=== PATIENT | female | born 1960 | race Caucasian/White ===

== ENCOUNTER 2023-11-26 11:59 | Emergency (ER) | payer BC, SELFPAY ==
[2023-11-26 12:08] VITALS: BP 195/104
[2023-11-26 13:25] VITALS: BP 188/90
--- NOTE | 2023-11-26 15:30 | ED.GENMED ---
History of Present Illness
General
Chief Complaint: Allergic Reaction
Source: patient
Time Seen by Provider: 11/26/23 13:00
History of Present Illness
History of Present Illness:
63yoF with a history of hypertension and hyperlipidemia presenting for evaluation of a rash. She initially started with a rash about 5 days ago. The rash is red, itchy, and migrating. She had some lower lip swelling 2 days ago so went to urgent
care. She was prescribed prednisone taper. She is currently on day 3 of 40mg of prednisone. Her lip swelling has resolved but she continues to have a rash and itching. Rash is located on her arms, legs, and trunk. She takes Claritin daily and has
been taking Benadryl without relief of her itching. She states that the inside of her ears and her throat also feel itchy. She is unsure what is causing her rash. She denies any new exposures. No exposure to similar rash. No recent illnesses.
Past History
Past History
ED Past Medical History: HTN, Hypercholesterolemia and Other (Low back pain)
ED Past Surgical History: Appendectomy and Orthopedic
Social History
Tobacco: Non-smoker
Personal:
Phy Exam
General Physical Exam
General Presentation: well appearing and no apparent distress
General age: appears stated age
General Skin: warm and dry
General Habitus: normal
General Mental: alert
General Hydration: appears well hydrated
ENT Exam
ENT Exam: pharynx normal
Additional ENT: No oropharyngeal swelling. Normal phonation.
Cardiovascular Exam
Cardiovascular Exam: regular rate/rhythm and no murmur
Pulmonary Exam
Pulmonary Exam: lungs clear, no respiratory distress, no crackles, no stridor and no wheezing
Skin Exam
Skin Exam: normal color, warm/dry, redness and other (Scattered raised urticaria in arms and trunk. Blanchable. )
Course
Vital Signs
Initial and Last Documented VS:
Initial Vital Signs
Temp Pulse Resp BP Pulse Ox
98.7 F 65 18 195/104 100
11/26/23 12:08 11/26/23 12:08 11/26/23 12:08 11/26/23 12:08 11/26/23 12:08
Last Documented Vital Signs
Temp Pulse Resp BP Pulse Ox
98.7 F 61 16 188/90 99
11/26/23 12:08 11/26/23 13:25 11/26/23 13:25 11/26/23 13:25 11/26/23 13:25
MDM/Problems Addressed
Differential Diagnosis Includes:
63yoF here with a rash that began last week. Currently on prednisone but rash/itching persists. No new exposures. She c/o throat itching. No oropharyngeal swelling on exam and airway is patent. Oxygen saturation 100% on room air. Urticarial rash
present on exam. Differential diagnosis includes but is not limited to: allergic reaction, hives, no evidence of infection
Will continue prednisone as previously prescribed by urgent care. Script provided for Atarax PRN for itching. Advised f/u with PCP if symptoms persist and ED return precautions discussed. Patient discharged in stable condition.
*Critical Care Note
Total Time (30-74mins, 75-104mins- exclusive of procedures): Not Applicable
ED Attending Note
-
Portions of this chart may have been created with voice recognition software.� Occasional wrong word or��sound alike� substitutions may have occurred due to the inherent limitations of voice recognition software.
Discharge Plan
Departure
Patient Disposition: Home (Routine Discharge)
Date of Disposition: 11/26/23
Time of Disposition: 13:17
Patient with high blood pressure during this ER visit?: Yes
Discharge Problem:
Urticaria
Instructions: Hives (DC)
Prescriptions:
New
hydroxyzine HCl 25 mg tablet
25 mg PO QID PRN (Reason: itching) Qty: 20 0RF
No Action
therapeutic multivitamin Tablet
1 tab PO DAILY
alprazolam 0.25 mg Tablet
0.25 mg PO BID PRN (Reason: anxiety)
Patient Comments:
takes to fly
ascorbic acid (vitamin C) 500 mg Tablet
500 mg PO DAILY
loratadine [Claritin] 10 mg Tablet
10 mg PO DAILY
esomeprazole magnesium [Nexium] 20 mg Capsule,Delayed Release(Dr/Ec)
20 mg PO DAILY PRN (Reason: heartburn)
cholecalciferol (vitamin D3) 25 mcg (1,000 unit) Capsule
25 mcg PO DAILY
cyanocobalamin (vitamin B-12)
1 tab PO DAILY
atenolol 50 mg Tablet
50 mg PO BID Qty: 60 0RF
atorvastatin 20 mg Tablet
20 mg PO DAILY
olmesartan-hydrochlorothiazide 20-12.5 mg Tablet
1 tab PO DAILY
hydrocodone-acetaminophen 5-325 mg tablet
2 tab PO Q6H PRN (Reason: Pain) Qty: 15 0RF
ondansetron 4 mg tablet,disintegrating
4 mg PO TIDPRN PRN (Reason: nausea/vomiting) Qty: 15 0RF
prednisone 10 mg Tablet
See Rx Instructions .ROUTE .COMPLEX Qty: 45 0RF
Rx Instructions:
Take By Mouth:
50 mg daily x3 days, 40 mg daily x3 days,
30 mg daily x3 days, 20 mg daily x3 days,
10 mg daily x3 days
Activity Restrictions/Additional Instructions:
Continue taking the prednisone taper and Claritin. Take Atarax as needed for itching.
Please follow-up with your family doctor if symptoms persist. Return to the ER with any new or worsening symptoms.
Interventions
Interventions:
*Risk Screen - Suicide Last Done: 11/26/23 12:08
*General Assessment Last Done: 11/26/23 12:08
*Neglect/Abuse Screening Last Done: 11/26/23 12:08
ED- Fall Risk Assessment Last Done: 11/26/23 13:25
*Nursing Disposition Last Done: 11/26/23 13:25
ED- Pulmonary Assessment Last Done: 11/26/23 13:25
ED-Skin Assessment Last Done: 11/26/23 13:25
Discharge Date and Time
Discharge Date/Time: 11/26/23 13:25
Print Language: [email or web address]
== END 2023-11-26 13:25 | disposition home or self-care (01) ==
LOC: EMR 11:59
PROVIDERS: EMERGENCY PHYSICIAN Emergency Medicine; FAMILY PHYSICIAN Family Medicine
DX: L50.0 Allergic urticaria (principal); I10 Essential (primary) hypertension; E78.00 Pure hypercholesterolemia, unspecified; Z88.5 Allergy status to narcotic agent; Z88.8 Allergy status to other drugs, medicaments and biological substances; Z91.018 Allergy to other foods
CPT/HCPCS: 99283

== ENCOUNTER → 2023-12-12 11:07 | Outpatient (REF) | payer BC, SELFPAY | LOC: RAD 11:07 | PROVIDERS: ATTENDING PHYSICIAN Family Medicine | DX: M25.561 Pain in right knee (principal) | CPT/HCPCS: 73564 ==

== ENCOUNTER → 2024-01-02 07:38 | Outpatient (REF) | payer BC, SELFPAY ==
[2024-01-02 08:43] LABS: % Eosinophils 1.4 % (0-6); % Immature Granulocytes 0.3 % (0-0.5); % Lymphocytes 24.7 % (20.5-51.1); % Monocytes 7.2 % (1.7-9.3); % Neutrophils 66.4 % (42.2-75.2); Absolute Eosinophils 0.1 10^3/uL (0-0.7); Absolute Lymphocytes 1.5 10^3/uL (1.2-3.4); Absolute Monocytes 0.5 10^3/uL (0.1-0.6); Absolute Neutrophils 4.1 10^3/uL (1.4-6.5); Hematocrit 34.2 % (37.0-47.0); Hemoglobin 11.9 g/dL (12.0-16.0); Mean Corp Hgb Conc. 34.8 g/dL (33.0-37.0); Mean Corpuscular Hgb 31.7 pg (27.0-31.0); Mean Corpuscular Volume 91.2 fL (81.0-99.0); Mean Platelet Volume 11.9 fL (7.4-10.4); Nucleated Red Blood Cells % 0 %; Platelet Count 224 10^3/uL (130-400); Red Blood Cell Count 3.75 10^6/uL (4.20-5.40); Red Cell Dist. Width 12.5 % (11.5-14.5); White Blood Cell Count 6.2 10^3/uL (4.8-10.8)
[2024-01-02 09:25] LABS: ALT (SGPT) 23 U/L (0-35); AST (SGOT) 25 U/L (14-36); Albumin 4.2 g/dl (3.5-5.0); Alkaline Phosphatase 110 U/L (38-126); Blood Urea Nitrogen 17 mg/dl (7-17); Calcium 9.8 mg/dl (8.4-10.2); Carbon Dioxide 30 mmol/L (22-30); Chloride 99 mmol/L (98-107); Glucose 106 mg/dl (70-99); Potassium 4.6 mmol/L (3.5-5.1); Sodium 138 mmol/L (135-145); Total Bilirubin 0.5 mg/dl (0.2-1.3); Total Protein 6.9 g/dl (6.3-8.2); eGFR 46.21
[2024-01-02 09:32] LABS: Erythrocyte Sed Rate 44 mm/hour (0-20)
[2024-01-02 09:57] LABS: TSH Reflex To Free T4 1.57 uIU/ml (0.47-4.68)
[2024-01-03 23:45] LABS: Complement Act., Total (CH50) >95.0 U/mL (38.7-89.9)
[2024-01-04 02:20] LABS: ANA, IgG Reflex to HEp-2 None Detected (None Detected)
[2024-01-04 07:41] LABS: IgE 16 kU/L (<=214)
[2024-01-04 13:34] LABS: 24 Hour Urine Total Volume Random mL; Urine Collection Length Random hr; Urine Free Kappa Light Chains 9.83 mg/L (0.00-32.90); Urine Free Lambda Light Chains 1.76 mg/L (0.00-3.79)
[2024-01-04 22:57] LABS: Complement C3 139 mg/dl (88-165)
== END ==
LOC: REG 07:38
PROVIDERS: ATTENDING PHYSICIAN Internal Medicine; FAMILY PHYSICIAN Family Medicine
DX: L50.1 Idiopathic urticaria (principal); L29.9 Pruritus, unspecified; T78.3XXA Angioneurotic edema, initial encounter
CPT/HCPCS: 36415; 80053; 82785; 83521; 84155; 84156; 84165; 84443; 85025; 85652; 86038; 86140; 86160; 86162; 86335

== ENCOUNTER → 2024-02-17 11:48 | Outpatient (REF) | payer BC, SELFPAY ==
[2024-02-17 13:36] LABS: % Eosinophils 2.2 % (0-6); % Immature Granulocytes 0.6 % (0-0.5); % Lymphocytes 21.7 % (20.5-51.1); % Monocytes 7.2 % (1.7-9.3); % Neutrophils 68.3 % (42.2-75.2); Absolute Eosinophils 0.2 10^3/uL (0-0.7); Absolute Immature Granulocytes 0.1 10^3/uL (0-0.05); Absolute Lymphocytes 1.9 10^3/uL (1.2-3.4); Absolute Monocytes 0.6 10^3/uL (0.1-0.6); Absolute Neutrophils 5.9 10^3/uL (1.4-6.5); Hematocrit 32.7 % (37.0-47.0); Hemoglobin 10.9 g/dL (12.0-16.0); Mean Corp Hgb Conc. 33.3 g/dL (33.0-37.0); Mean Corpuscular Hgb 30.6 pg (27.0-31.0); Mean Corpuscular Volume 91.9 fL (81.0-99.0); Mean Platelet Volume 12.2 fL (7.4-10.4); Nucleated Red Blood Cells % 0 %; Platelet Count 213 10^3/uL (130-400); Red Blood Cell Count 3.56 10^6/uL (4.20-5.40); White Blood Cell Count 8.6 10^3/uL (4.8-10.8)
[2024-02-17 14:11] LABS: Blood Urea Nitrogen 12 mg/dl (7-17); Calcium 9.2 mg/dl (8.4-10.2); Carbon Dioxide 27 mmol/L (22-30); Chloride 104 mmol/L (98-107); Glucose 94 mg/dl (70-99); Potassium 4.3 mmol/L (3.5-5.1); Sodium 141 mmol/L (135-145); eGFR > 60.00
[2024-02-17 14:13] LABS: Erythrocyte Sed Rate 32 mm/hour (0-20)
[2024-02-19 23:58] LABS: ANA, IgG Reflex to HEp-2 None Detected (None Detected)
== END ==
LOC: REG 11:48
PROVIDERS: ATTENDING PHYSICIAN Internal Medicine; FAMILY PHYSICIAN Family Medicine
DX: L50.1 Idiopathic urticaria (principal)
CPT/HCPCS: 36415; 80048; 85025; 85652; 86038; 86140

== ENCOUNTER → 2024-04-12 10:10 | Outpatient (REF) | payer BC, SELFPAY ==
[2024-04-12 11:15] LABS: Urine Albumin Negative (Neg - Trace); Urine Bilirubin Negative (Negative); Urine Character Clear (Clear); Urine Color Yellow; Urine Glucose Negative (Negative); Urine Ketone Negative (Negative); Urine Leukocyte Negative (Negative); Urine Nitrite Negative (Negative); Urine Occult Blood Negative (Negative); Urine Urobilinogen Negative (Neg - 1+)
[2024-04-12 11:52] LABS: C-Reactive Protein < 5.00 mg/L (0.0-10.00)
[2024-04-12 11:57] LABS: Erythrocyte Sed Rate 27 mm/hour (0-20)
[2024-04-12 12:36] LABS: Urine Protein < 5 mg/dl
[2024-04-12 13:21] LABS: Rheumatoid Agglutinin Less Than 10 IU (<10 IU)
[2024-04-14 20:06] LABS: Centromere Antibody 0 AU/mL (0-40); Jo-1 Antibodies 1 AU/mL (0-40); SSA 52 (Ro)(ENA) Ab, IgG 2 AU/mL (0-40); SSA 60 (Ro)(ENA) Ab, IgG 1 AU/mL (0-40); SSB (La)(ENA) Ab, IgG 0 AU/mL (0-40); Scleroderma Antibody (Scl-70) 2 AU/mL (0-40)
[2024-04-15 00:50] LABS: Smith/RNP (ENA), IgG 2 Units (0-19)
[2024-04-15 00:58] LABS: ds-DNA Ab, IgG Reflex To Titer 6 IU (0-24)
[2024-04-15 01:30] LABS: ANA, IgG Reflex to HEp-2 None Detected (None Detected)
[2024-04-15 01:36] LABS: F-Actin Antibody IgG 8 Units (0-19)
== END ==
LOC: REG 10:10
PROVIDERS: ATTENDING PHYSICIAN Student in an Organized Health Care Education/Training Program; FAMILY PHYSICIAN Family Medicine
DX: D64.9 Anemia, unspecified (principal); L50.9 Urticaria, unspecified; M15.9 Polyosteoarthritis, unspecified; M54.59 Other low back pain; R70.0 Elevated erythrocyte sedimentation rate; Z84.0 Family history of diseases of the skin and subcutaneous tissue
CPT/HCPCS: 36415; 81003; 82570; 83516; 84156; 85652; 86015; 86038; 86140; 86225; 86235; 86430

== ENCOUNTER → 2024-08-03 09:53 | Outpatient (REF) | payer BC, SELFPAY | LOC: RCS 09:53 | PROVIDERS: ATTENDING PHYSICIAN Internal Medicine Cardiovascular Disease; FAMILY PHYSICIAN Family Medicine | DX: I10 Essential (primary) hypertension (principal) | CPT/HCPCS: 93306 ==

== ENCOUNTER → 2024-10-01 10:25 | Outpatient (REF) | payer BC, SELFPAY ==
[2024-10-01 10:43] LABS: % Basophils 0.1 % (0-2); % Immature Granulocytes 0.1 % (0-0.5); % Lymphocytes 28.3 % (20.5-51.1); % Monocytes 7.3 % (1.7-9.3); % Neutrophils 62.2 % (42.2-75.2); Absolute Eosinophils 0.1 10^3/uL (0-0.7); Absolute Monocytes 0.5 10^3/uL (0.1-0.6); Absolute Neutrophils 4.4 10^3/uL (1.4-6.5); Hematocrit 37.9 % (37.0-47.0); Hemoglobin 12.8 g/dL (12.0-16.0); Mean Corp Hgb Conc. 33.8 g/dL (33.0-37.0); Mean Corpuscular Hgb 30.7 pg (27.0-31.0); Mean Corpuscular Volume 90.9 fL (81.0-99.0); Mean Platelet Volume 12.6 fL (7.4-10.4); Nucleated Red Blood Cells % 0 %; Platelet Count 194 10^3/uL (130-400); Red Blood Cell Count 4.17 10^6/uL (4.20-5.40); Red Cell Dist. Width 12.3 % (11.5-14.5)
[2024-10-01 11:14] LABS: ALT (SGPT) 25 U/L (0-35); AST (SGOT) 23 U/L (14-36); Albumin 4.4 g/dl (3.5-5.0); Alkaline Phosphatase 91 U/L (38-126); Blood Urea Nitrogen 15 mg/dl (7-17); Calcium 9.8 mg/dl (8.4-10.2); Carbon Dioxide 28 mmol/L (22-30); Chloride 107 mmol/L (98-107); Glucose 95 mg/dl (70-99); Iron 85 ug/dl (37-170); Magnesium 2.1 mg/dl (1.6-2.3); Potassium 4.6 mmol/L (3.5-5.1); Sodium 142 mmol/L (135-145); Total Bilirubin 0.6 mg/dl (0.2-1.3); Total Protein 6.8 g/dl (6.3-8.2); eGFR 56.11
[2024-10-01 11:23] LABS: Percent Saturation 23 % (20-50); Total Iron Binding Capacity 358 ug/dl (265-497)
[2024-10-01 12:56] LABS: TSH Reflex To Free T4 1.92 uIU/ml (0.47-4.68)
[2024-10-01 13:09] LABS: Vitamin B12 > 1000 pg/ml (239-931)
[2024-10-01 14:24] LABS: Folate > 20.0 ng/ml (2.76-20)
== END ==
LOC: WDC 10:25
PROVIDERS: ATTENDING PHYSICIAN Family Medicine; REFERRING PHYSICIAN Internal Medicine Cardiovascular Disease
DX: I10 Essential (primary) hypertension (principal); D64.9 Anemia, unspecified; Z12.31 Encounter for screening mammogram for malignant neoplasm of breast
CPT/HCPCS: 36415; 77063; 77067; 80053; 82607; 82728; 82746; 83540; 83550; 83735; 84443; 85025

== ENCOUNTER → 2024-10-05 09:12 | Outpatient (REF) | payer BC, SELFPAY | LOC: REG 09:12 | PROVIDERS: ATTENDING PHYSICIAN Internal Medicine Cardiovascular Disease | DX: D64.9 Anemia, unspecified (principal); I10 Essential (primary) hypertension | CPT/HCPCS: 82272 ==

== ENCOUNTER → 2024-10-29 14:15 | Outpatient (REF) | payer BC, SELFPAY | LOC: PAVMRI 14:15 | PROVIDERS: ATTENDING PHYSICIAN Family Medicine | DX: M25.561 Pain in right knee (principal) | CPT/HCPCS: 73721 ==

== ENCOUNTER 2024-12-07 15:56 | Outpatient (RCR) | payer BC, SELFPAY | END 2024-12-07 23:59 | disposition home or self-care (01) | LOC: RPT 15:56 | PROVIDERS: ATTENDING PHYSICIAN Orthopaedic Surgery; FAMILY PHYSICIAN Family Medicine | DX: M25.561 Pain in right knee (principal); Z73.6 Limitation of activities due to disability | CPT/HCPCS: 97010; 97110; 97112; 97140; 97161; 97530 ==

== ENCOUNTER 2024-12-22 15:07 | Outpatient (RCR) | payer BC, SELFPAY | END 2024-12-22 23:59 | disposition home or self-care (01) | LOC: RPT 15:07 | PROVIDERS: ATTENDING PHYSICIAN Orthopaedic Surgery; FAMILY PHYSICIAN Family Medicine | DX: M25.561 Pain in right knee (principal); Z73.6 Limitation of activities due to disability; M62.81 Muscle weakness (generalized) | CPT/HCPCS: 97110; 97112; 97140; 97530 ==

== ENCOUNTER → 2025-02-25 14:34 | Outpatient (REF) | payer BC, SELFPAY ==
[2025-02-25 16:46] LABS: Blood Urea Nitrogen 20 mg/dl (7-17); Calcium 9.5 mg/dl (8.4-10.2); Carbon Dioxide 22 mmol/L (22-30); Chloride 105 mmol/L (98-107); Glucose 89 mg/dl (70-99); Potassium 4.6 mmol/L (3.5-5.1); Sodium 137 mmol/L (135-145); eGFR > 60.00
== END ==
LOC: REG 14:34
PROVIDERS: ATTENDING PHYSICIAN Internal Medicine Cardiovascular Disease; FAMILY PHYSICIAN Family Medicine
DX: I10 Essential (primary) hypertension (principal)
CPT/HCPCS: 36415; 80048